=== PATIENT | female | born 1970 | race Caucasian/White ===

== ENCOUNTER 2024-09-21 10:11 | Emergency (ER) | payer SELFPAY ==
[2024-09-21 10:26] VITALS: BP 121/86; PULSE 89; TEMP 37; O2SAT 99; BMI 53.9
--- NOTE | 2024-09-21 10:26 | ED_ITS ---
HPI - Allergic Reaction General Chief complaint: Allergic Reaction Stated complaint: ALERGIC REACTION Time Seen by Provider: 09/21/24 10:12 History of Present Illness HPI narrative: 54-year-old female presents to the emergency department for an allergic reaction. She is developed a pruritic rash over various areas of her body but mostly on her torso and her back in particular. She has not been on any new medications or used any new soaps or detergents or any new products. She has not eaten any new foods. She took some Zyrtec. She works as a [employer]. Related Data Previous Rx's ?Medication ?Instructions ?Recorded prednisone 10 mg tablet See Rx Instructions .Route 09/21/24 .COMPLEX #30 tabs Allergies Allergy/AdvReac Type Severity Reaction Status Date / Time No Known Drug Allergies Allergy Verified 09/21/24 10:25 Review of Systems ROS Narrative A ten point review of systems is negative except as noted above. Exam Narrative Exam Narrative: Nurses note and vital signs reviewed and patient is not hypoxic. General: The patient appears well and in no apparent distress. Patient is resting comfortably on cart. Skin: Warm, dry, no pallor noted. There is scattered erythematous raised rash present on many areas of her body, particularly the lower back and the rest of her torso. No pustules or blisters present. Head: Normocephalic, atraumatic Eye: Normal conjunctiva, no drainage Ears, Nose, Mouth, and Throat: oral mucosa is moist. Nares patent. Cardiovascular: Regular Rate and Rhythm Respiratory: Patient is in no distress, no accessory muscle use Back: non-tender, no CVA tenderness bilaterally to percussion. GI: Nontender Musculoskeletal: No joint swelling Neurological: Awake and alert Psychiatric: Cooperative MDM - Allergic Reaction MDM Narrative Medical decision making narrative: She was given IM Solu-Medrol and prescribed prednisone. We will avoid Benadryl in this patient because of her job. Treatment diagnosis and follow-up were discussed with the patient. Differential Diagnosis Differential diagnosis: Likely allergic reaction, viral enanthem and urticaria Discharge Plan Discharge Chief Complaint: Allergic Reaction Clinical Impression: Allergic reaction Patient Disposition: Home, Self-Care Time of Disposition Decision: 10:26 Condition: Good Mode of Transportation: Private Vehicle Prescriptions / Home Meds: New prednisone 10 mg tablet See Rx Instructions .ROUTE .COMPLEX Qty: 30 0RF Rx Instructions: 4 by mouth daily for three days then 3 by mouth daily for three days then 2 by mouth daily for three days then 1 by mouth daily for three days Print Language: Tristanian Instructions: General Allergic Reaction (ED)
[2024-09-21] MEDS: METHYLPREDNISOLONE SOD SUCC PF 125 MG/2 ML VIAL IM (10:34)
== END 2024-09-21 10:42 | disposition home or self-care (01) ==
LOC: ER 10:30
PROVIDERS: Emergency Provider Emergency Medicine
DX: T78.40XA Allergy, unspecified, initial encounter (principal)
CPT/HCPCS: 96372; 99284; J2919